=== PATIENT | male | born 1975 | race Caucasian/White ===

== ENCOUNTER 2024-04-27 09:51 | Emergency (ER) | payer SELFPAY ==
[~2024-04-27] VITALS: Ht 167.6 cm; Wt 72.5 kg
[2024-04-27 09:57] VITALS: BP 136/70; PULSE 67; RESP 16; TEMP 98.6; O2SAT 97
[2024-04-27] MEDS ORDERED: MUPI1OIN4 TP (10:33)
[2024-04-27 12:13] LABS: BASOPHILS % 1.2 % (0.0-2.0); EOSINOPHILS % 6.1 % (0.0-5.0); HEMATOCRIT. 42.9 % (42.0-52.0); HEMOGLOBIN. 14.6 g/dL (14.0-18.0); LYMPHOCYTES % 18.3 % (20.0-50.0); MEAN CORPUSCULAR HEMOGLOBIN 30.4 pg (28.0-32.0); MEAN CORPUSCULAR HGB CONC 34.1 g/dL (31.0-37.0); MEAN CORPUSCULAR VOLUME 89.3 fL (80.0-94.0); MEAN PLATELET VOLUME 7.8 fl (7.4-10.4); MONOCYTES % 7.4 % (2.0-8.0); PLATELET 290 x1000/uL (130-400); RED BLOOD CELL COUNT 4.81 mill/uL (4.7-6.1); RED CELL DISTRIBUTION WIDTH 12.7 % (11.6-14.6); WHITE BLOOD COUNT 12.4 x1000/uL (4.5-11.0)
[2024-04-27 12:23] LABS: CHLORIDE 112 mEq/L (98-107); SODIUM 143 mEq/L (136-145)
[2024-04-27 12:24] LABS: CALCIUM 9.4 mg/dL (8.7-10.4); CARBON DIOXIDE 27 mEq/L (21-32)
[2024-04-27 12:29] LABS: CREATININE 0.9 mg/dL (0.6-1.3); GLUCOSE 101 mg/dL (70-105); UREA NITROGEN BLOOD 15 mg/dL (9-23)
[2024-04-27 12:31] LABS: ALANINE AMINOTRANSFERASE 28 IU/L (10-49); ASPARTATE AMINOTRANSFERASE 17 IU/L (<34)
[2024-04-27 12:32] LABS: BILIRUBIN TOTAL 0.4 mg/dL (0.1-1.0)
== END 2024-04-27 15:55 | disposition home or self-care (01) ==
LOC: ER 10:13
DX: L01.00 Impetigo, unspecified (principal)
CPT/HCPCS: 36415; 80053; 85025; 99283